=== PATIENT | male | born 1965 | race African-American/Black ===

== ENCOUNTER → 2016-11-11 | Outpatient (CLI) | payer BC ==
--- NOTE | ~2016-11-11 | US37 ---
[facility] A Service of [facility] & [facility] RADIOLOGY TEXT RESULTS PATIENT: OLLIE ROSAS LOCATION: CNIV : 61 UNIT #: [id number] AGE: [address]: Nubia Antunez APRN SEX: M ORDER DR: [id number] [facility] [address] [place], [place] [address] [id number] O MR#: [id number] Acc #: [id number] NAME: OLLIE ROSAS : 1965 SEX: M STUDY DATE/TIME: 11/11/2016 12:41 UNIT: CNIV ROOM: STUDY DESCRIPTION: US Carotid W/Doppler Bilateral Attending Physician: Nubia Antunez A.P.R.N. Referring Physician: Nubia Antunez A.P.R.N. Ordering Physician: Nubia Antunez A.P.R.N. Primary Care Physician: Nubia Antunez A.P.R.N. MEDICAL IMAGING REPORT This report is preliminary unless electronic signature is present EXAM Bilateral carotid Doppler ultrasound. DATE 11/11/2016 HISTORY Right carotid bruit. COMPARISON None FINDINGS Real-time garcia-scale, color Doppler, and spectral Doppler imaging was performed of the bilateral cervical carotid arteries and vertebral arteries. Estimated stenosis was based on standard NASCET methodology. Soft and calcific plaquing is demonstrated within bilateral carotid bulbs and proximal internal carotid arteries, left slightly greater than right. There is elevated peak systolic velocity in the right external carotid artery up to 205.1 cm/sec suggesting luminal stenosis. The right internal carotid artery peak systolic velocity proximal segment, 180.5 cm/sec, mid segment 108.0 cm/sec, and distal segment 100.8 cm/sec, indicating 50% to 69% luminal stenosis based on NASCET methodology. Right vertebral artery is patent with normal antegrade flow. Normal spectral Doppler waveforms are demonstrated. Right ICA/CCA ratio 1.7. Left external carotid artery is patent with mildly elevated peak systolic velocity of 135.7 cm/sec. The left internal carotid artery peak systolic velocity proximal segment 122.4 cm/sec, mid segment 106.9 cm/sec, distal segment 101.8 cm/sec, indicating less than 50% luminal stenosis by NASCET methodology. Patency and antegrade flow of the left vertebral artery. [facility] A Service of [facility] & [facility] RADIOLOGY TEXT RESULTS PATIENT: OLLIE ORSAS LOCATION: [facility] : [birth year] UNIT #: [id number] AGE: [address]: Nubia Antunez APRN SEX: M ORDER DR: ANGELINA 1. 50% to 69% luminal stenosis of the bilateral internal carotid arteries by NASCET criteria. 2. Suspected mild stenoses of the bilateral external carotid arteries. 3. Patency and antegrade flow of the bilateral vertebral arteries. Dictated by... Steff Cano M.D. THIS IS AN ELECTRONICALLY VERIFIED REPORT Steff Cano M.D. at 11/12/2016 11:56 AM ARMANDO/lasha TD: 11/11/2016 17:16 JOB #: [id number] MEDICAL IMAGING REPORT COPY
--- NOTE | ~2016-11-11 | MY6 ---
[facility] A Service of [facility] & [facility] RADIOLOGY TEXT RESULTS PATIENT: OLLIE ROSAS LOCATION: CNIV : 61 UNIT #: [id number] AGE: [address]: Nubia Antunez APRN SEX: M ORDER DR: [id number] [facility] [address] [place], [place] [address] [id number] O MR#: [id number] Acc #: [id number] NAME: OLLIE ROSAS : 1965 SEX: M STUDY DATE/TIME: 11/11/2016 13:48 UNIT: CNIV ROOM: STUDY DESCRIPTION: MY Mammogram Dx Dig Brad Attending Physician: Nubia Antunez A.P.R.N. Referring Physician: Nubia Antunez A.P.R.N. Ordering Physician: Nubia Antunez A.P.R.N. Primary Care Physician: Nubia Antunez A.P.R.N. MEDICAL IMAGING REPORT This report is preliminary unless electronic signature is present EXAM Diagnostic bilateral mammogram INDICATION Left breast lump behind nipple. No family history of breast cancer. FINDINGS MLO and CC digital views of left breast and MLO view of the right breast were obtained with digital technique. There is extensive gynecomastia on the left side with a zone of glandular tissue measuring about 5.0 cm in diameter. There is a small 1.0 cm zone of glandular tissue on the right side. There is no mass or calcification identified. IMPRESSION Left greater than right gynecomastia. There is no evidence of malignancy. Patients over the age of 40 are entered into a reminder system with target due date for the next mammogram. A result letter will also be sent to the patient. BIRADS: 2 Benign Finding Dictated by... Sunday Leggett M.D. THIS IS AN ELECTRONICALLY VERIFIED REPORT Sunday Leggett M.D. at 11/11/2016 4:55 PM SCARLET/landon TD: 11/11/2016 16:28 JOB #: [id number] MEDICAL IMAGING REPORT [facility] A Service of [facility] & [facility] RADIOLOGY TEXT RESULTS PATIENT: OLLIE ROSAS LOCATION: CNIV : 61 UNIT #: [id number] AGE: [address]: Nubia Antunez APRN SEX: M ORDER DR: COPY
== END | disposition home or self-care (01) ==
LOC: CNIV 12:19
DX: R09.89 Other specified symptoms and signs involving the circulatory and respiratory systems (principal); N63 Unspecified lump in breast; N62 Hypertrophy of breast; I65.23 Occlusion and stenosis of bilateral carotid arteries
CPT/HCPCS: 93880; G0204